=== PATIENT | male | born 1965 | race Caucasian/White ===

== ENCOUNTER 2024-10-21 22:24 | Emergency (ER) | payer MEDICAID ==
[~2024-10-21] VITALS: Ht 182.9 cm; Wt 59.2 kg
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
[2024-10-22] MEDS: cyclobenzaprine 10mg tablet PO ONE (01:38)
[2024-10-22] MEDS: ketorolac trometh 30MG/ML vial 30 MG/ML VIAL IM ONE (01:38)
[2024-10-22 01:40] VITALS: BP 125/85; PULSE 95; RESP 16; TEMP 98.2; O2SAT 97
== END 2024-10-22 01:43 | disposition home or self-care (01) ==
LOC: ER 22:24
DX: S39.012A Strain of muscle, fascia and tendon of lower back, initial encounter (principal); V89.2XXA Person injured in unspecified motor-vehicle accident, traffic, initial encounter; Y93.89 Activity, other specified; Y92.89 Other specified places as the place of occurrence of the external cause; Y99.8 Other external cause status
CPT/HCPCS: 96372; 99283; J1885

== ENCOUNTER 2024-10-30 08:07 | Emergency (ER) | payer MEDICAID ==
[~2024-10-30] VITALS: Ht 182.9 cm; Wt 77.3 kg
[2024-10-30 08:17] VITALS: BP 127/75; PULSE 89; O2SAT 98
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
[2024-10-30] MEDS ORDERED: METH-798 PO (10:08)
[2024-10-30] MEDS ORDERED: MELO-102 PO (10:08)
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
[2024-10-30 10:38] VITALS: RESP 16
[2024-10-30] MEDS: ketorolac trometh 30MG/ML vial 30 MG/ML VIAL IM ONE (10:38)
[2024-10-30 11:28] VITALS: TEMP 98
== END 2024-10-30 11:29 | disposition home or self-care (01) ==
LOC: ER 08:08
DX: M54.50 Low back pain, unspecified (principal); F31.9 Bipolar disorder, unspecified; Z79.899 Other long term (current) drug therapy; Z60.2 Problems related to living alone; V98.8XXA Other specified transport accidents, initial encounter; Y93.89 Activity, other specified; Y92.89 Other specified places as the place of occurrence of the external cause; Y99.8 Other external cause status
CPT/HCPCS: 72100; 96372; 99283; J1885